=== PATIENT | female | born 1970 ===

== ENCOUNTER 2023-04-29 13:27 | Day surgery (SDC) | payer OTHER ==
[2023-04-23 08:44] LABS: URINE APPEARANCE Clear; URINE BACTERIA 56.6 uL (0.0-1933); URINE BILIRRUBIN Negative (NEGATIVE); URINE COLOR Yellow; URINE GLUCOSE Negative (NEGATIVE); URINE LEUKOCYTE Small; URINE NITRATE Negative; URINE PROTEIN Trace (NEGATIVE); URINE RBC 8.7 uL (0.0-20.8); URINE UROBILINOGEN 0.2 E.U./dl; URINE WBC 139.6 uL (0.0-23.2)
[2023-04-23 08:47] LABS: HEMATOCRIT 37.6 % (36.0-45.00); HEMOGLOBIN 12.4 g/dL (12.0-15.00); MEAN CELL VOLUME 79.8 fL (80.00-100.00); MEAN CORPUSCULAR HEMOGLOBIN 26.3 pg (27.00-32.0); PLATELET COUNT 302 K/uL (150-450); RED BLOOD COUNT 4.72 M/uL (4.00-6.00); RED CELL DISTRIBUTION WIDTH 17.1 % (11.5-14.5)
[2023-04-23 08:47] LABS: URINE BLOOD TRACE
[2023-04-23 09:22] LABS: INR < 0.93; PARTIAL THROMBOPLASTIN TIME 25.5 SECONDS (22.0-34.0); PROTHROMBIN TIME 9.8 SECONDS (9.0-11.5)
[2023-04-23 10:39] LABS: ALBUMIN 3.8 gm/dL (3.4-5.0); BILIRUBIN TOTAL 0.25 mg/dL (0.3-1.2); CALCIUM 8.8 mg/dL (8.5-10.1); CREATININE SERUM 0.83 mg/dL (0.55-1.02); GFR 72.47; GLOBULINA 3.9 G/DL (2.4-3.5); POTASSIUM 4.58 mEq/L (3.5-5.1); TOTAL PROTEIN 7.7 gm/dL (6.4-8.2)
[~2023-04-29 13:27] MED LIST: AMBIEN10 MG PO; BENADR PO; CLONAZEPAM1 MG PO; COZAAR50 MG PO; ELAVIL PO; FLONASE16 GM IH; HORIZANT300 MG PO; LIPITOR20 MG PO; LOPID PO; PAXIL30 MG PO; RELA PO; VITAMIN D PO; ZYRTEC10 M3 PO
== END 2023-04-30 | disposition home or self-care (01) ==
LOC: CIR.AMB 13:27
PROVIDERS: ATTEND Obstetrics & Gynecology Obstetrics
DX: N84.0 Polyp of corpus uteri (principal); N93.9 Abnormal uterine and vaginal bleeding, unspecified; Z88.6 Allergy status to analgesic agent; Z20.822 Contact with and (suspected) exposure to COVID-19